=== PATIENT | female | born 1940 | race Caucasian/White ===

== ENCOUNTER 2017-07-28 06:23 | Emergency (ER) | payer MEDICARE, BC ==
[~2017-07-28] VITALS: Ht 152.4 cm; Wt 41.7 kg
[2017-07-28] MEDS ORDERED: LEVO50TA8 PO (06:45)
[2017-07-28] MEDS ORDERED: SIMV40TA5 PO (06:45)
[2017-07-28] MEDS ORDERED: RAMI10CA PO (06:45)
[2017-07-28 07:03] LABS: BASOPHILS % (AUTO) 0.9 % (0.0-2.0); CARBON DIOXIDE 30 mmol/L (21-32); CHLORIDE 107 mmol/L (98-107); CREATININE 0.9 mg/dL (0.6-1.3); EOSINOPHILS # (AUTO) 0.1 K/uL (0.0-0.7); EOSINOPHILS % (AUTO) 2.5 % (0.0-7.0); GLUCOSE 99 mg/dL (74-106); HEMATOCRIT 41.4 % (37-47); HEMOGLOBIN 13.7 G/DL (12.0-16.0); LYMPHOCYTES # (AUTO) 1.5 K/UL (0.8-4.8); LYMPHOCYTES % (AUTO) 31.4 % (20.5-51.5); MEAN CORPUSCULAR HEMOGLOBIN 30.6 UUG (27.0-31.0); MEAN CORPUSCULAR HGB CONC 33 g/dL (32.0-37.0); MEAN CORPUSCULAR VOLUME 92.6 FL (81.0-99.0); MONOCYTES # (AUTO) 0.5 K/UL (0.1-1.30); NEUTROPHILS # (AUTO) 2.8 K/UL (1.8-8.9); NEUTROPHILS % (AUTO) 54.2 % (38.5-71.5); PLATELET COUNT (AUTO) 229 K/UL (150-450); RED BLOOD CELL COUNT(AUTO) 4.48 MIL/UL (4.2-5.4); UREA NITROGEN, BLOOD 27 mg/dL (7-18); WHITE BLOOD COUNT (AUTO) 4.9 K/UL (4.0-11.2)
[2017-07-28 07:15] LABS: ALANINE AMINOTRANSFERASE 31 U/L (14-59); ALKALINE PHOSPHATASE 73 U/L (50-136); ASPARTATE AMINOTRANSFERASE 27 U/L (15-37); BILIRUBIN,DIRECT 0.1 mg/dL (0.0-0.2); BILIRUBIN,TOTAL 0.2 mg/dL (0.2-1.0); TOTAL PROTEIN, SERUM 7.5 g/dL (6.4-8.2)
--- NOTE | 2017-07-28 07:35 | NUR ---
Pt walked to bathroom w/ steady gait, denies CP and SOB.
--- NOTE | 2017-07-28 08:25 | NUR ---
IV removed. Catheter intact and site benign. Pressure and 4x4 gauze applied to site. No bleeding noted.
[2017-07-28 08:27] VITALS: BP 142/80
--- NOTE | 2017-07-28 08:27 | NUR ---
Patient discharged to home in stable conditon. Written and verbal after care instructions given. Patient verbalizes understanding of instructions. Pt left er w/ steady gait accompained by family.
== END 2017-07-28 08:30 | disposition home or self-care (01) ==
LOC: ER 06:24
DX: R00.2 Palpitations (principal); I10 Essential (primary) hypertension; E86.0 Dehydration; E03.9 Hypothyroidism, unspecified; E78.00 Pure hypercholesterolemia, unspecified; Z88.0 Allergy status to penicillin
CPT/HCPCS: 36415; 71010; 80048; 80076; 83880; 84443; 84484; 85025; 85730; 93005; 99285; A4663; 70030-TC

== ENCOUNTER 2018-04-24 09:19 | Outpatient (CLI) | payer MEDICARE, BC ==
[~2018-04-24 09:19] MED LIST: LEVO50TA8 PO; RAMI10CA PO; SIMV40TA5 PO
[2018-04-24 09:45] LABS: BASOPHILS % (AUTO) 0.4 % (0.0-2.0); EOSINOPHILS # (AUTO) 0.1 K/uL (0.0-0.7); HEMATOCRIT 40.4 % (31.2-41.9); HEMOGLOBIN 13.7 g/dL (10.9-14.3); LYMPHOCYTES # (AUTO) 1.8 K/uL (20.0-40.0); LYMPHOCYTES % (AUTO) 18.8 % (20.5-51.5); MEAN CORPUSCULAR HEMOGLOBIN 31.5 uug (24.7-32.8); MEAN CORPUSCULAR HGB CONC 34 g/dL (32.3-35.6); MONOCYTES # (AUTO) 0.8 K/uL (2.0-10.0); MONOCYTES % (AUTO) 8.8 % (0.0-11.0); NEUTROPHILS # (AUTO) 6.8 K/uL (1.8-8.9); PLATELET COUNT (AUTO) 263 K/uL (179-408); RED BLOOD CELL COUNT(AUTO) 4.34 MIL/uL (3.63-4.92); WHITE BLOOD COUNT (AUTO) 9.6 K/uL (3.8-11.8)
[2018-04-24 09:55] LABS: ALANINE AMINOTRANSFERASE 28 U/L (14-59); ALKALINE PHOSPHATASE 87 U/L (50-136); ASPARTATE AMINOTRANSFERASE 21 U/L (15-37); BILIRUBIN,TOTAL 0.4 mg/dL (0.2-1.0); CARBON DIOXIDE 34 mmol/L (21-32); CHLORIDE 105 mmol/L (98-107); CREATININE 0.9 mg/dL (0.6-1.3); GLUCOSE 83 mg/dL (74-106); POTASSIUM 4.2 mmol/L (3.5-5.1); TOTAL PROTEIN, SERUM 7.4 g/dL (6.4-8.2); UREA NITROGEN, BLOOD 30 mg/dL (7-18)
[2018-04-24 10:05] LABS: THYROID STIMULATING HORMONE 4.042 mIU/mL (0.358-3.740)
== END 2018-04-24 23:59 | disposition home or self-care (01) ==
LOC: LAB 09:19
PROVIDERS: ATTEND Internal Medicine Rheumatology
DX: R42 Dizziness and giddiness (principal)
CPT/HCPCS: 36415; 84443; 85025; 85651

== ENCOUNTER 2019-09-07 11:32 | Emergency (ER) | payer MEDICARE, BC ==
[~2019-09-07] VITALS: Ht 152.4 cm; Wt 40.8 kg
[~2019-09-07 11:32] MED LIST changes: +ASPI81TA31 PO; +METO25TA6 PO; -RAMI10CA PO; +RAMI10CA69 PO
--- NOTE | 2019-09-07 11:46 | NUR ---
Dr Kirk at the bedside for MSE.
--- NOTE | 2019-09-07 12:03 | NUR ---
Patient discharged to home in stable conditon. Written and verbal after care instructions given. Patient verbalizes understanding of instructions.
[2019-09-07 12:04] VITALS: BP 122/77
== END 2019-09-07 12:04 | disposition home or self-care (01) ==
LOC: ER 11:34
DX: M79.621 Pain in right upper arm (principal); I10 Essential (primary) hypertension; E78.00 Pure hypercholesterolemia, unspecified; E03.9 Hypothyroidism, unspecified; Z88.0 Allergy status to penicillin; Z79.82 Long term (current) use of aspirin; Z79.899 Other long term (current) drug therapy
CPT/HCPCS: A4663

== ENCOUNTER 2019-09-23 15:01 | Outpatient (CLI) | payer MEDICARE, BC ==
[2019-09-23 16:17] LABS: CREATININE 0.8 mg/dL (0.6-1.3); POTASSIUM 4.9 mmol/L (3.5-5.1)
== END 2019-09-23 23:59 | disposition home or self-care (01) ==
LOC: LAB 15:01
DX: G31.84 Mild cognitive impairment of uncertain or unknown etiology (principal); F32.1 Major depressive disorder, single episode, moderate; I10 Essential (primary) hypertension; E78.00 Pure hypercholesterolemia, unspecified
CPT/HCPCS: 36415